=== PATIENT | male | born 1995 | race Caucasian/White ===

== ENCOUNTER 2020-03-31 09:07 | Outpatient (CLI) | payer OTHER ==
[~2020-03-31] VITALS: Ht 162.6 cm; Wt 57.4 kg
[2020-03-31 09:41] VITALS: BP 128/89; PULSE 68
[2020-03-31 12:08] VITALS: BP 114/84; PULSE 60
--- NOTE | 2020-03-31 12:25 | NUR ---
Pt expresses understanding of DC instructions. He ambulates from dept with steady gait.
== END 2020-03-31 12:25 | disposition home or self-care (01) ==
LOC: COL.CAR 09:07
DX: R55 Syncope and collapse (principal); Z87.891 Personal history of nicotine dependence